=== PATIENT | female | born 1985 | race Caucasian/White ===

== ENCOUNTER 2020-01-26 15:21 | Inpatient (IN) | payer OTHER ==
[~2020-01-26] VITALS: Ht 160 cm; Wt 96.3 kg
[2020-01-26] MEDS ORDERED: ACETAMINOPHEN 500 MG TABLET PO ONE (17:15)
[2020-01-26 18:20] VITALS: BP 110/68
[2020-01-26 18:58] LABS: BASOPHILS % (AUTO) 1.2 % (0.0-2.0); EOSINOPHILS % (AUTO) 1.7 % (1.0-6.0); HEMATOCRIT 35.5 % (36-46); HEMOGLOBIN 11.2 g/dL (12.0-16.0); LYMPHOCYTES # (AUTO) 2.3 K/uL (1.0-4.8); LYMPHOCYTES % (AUTO) 37.1 % (22.0-44.0); MEAN CORPUSCULAR HEMOGLOBIN 22.6 pg (26.0-34.0); MEAN CORPUSCULAR HGB CONC 31.6 G/dL (31.0-37.0); MEAN CORPUSCULAR VOLUME 72 fL (80-100); MONOCYTES # (AUTO) 0.3 K/uL (0.1-1.0); MONOCYTES % (AUTO) 5.4 % (2.0-9.0); NEUTROPHILS # (AUTO) 3.5 K/uL (1.8-7.7); NEUTROPHILS % (AUTO) 54.6 % (40.0-70.0); PLATELET COUNT (AUTO) 292 K/uL (150-450); RED BLOOD CELL COUNT(AUTO) 4.95 MIL/uL (4.00-5.20); RED CELL DISTRIBUTION WIDTH 18.5 % (11.5-14.5)
[2020-01-26 19:19] LABS: ANION GAP 6 mmol/L (8-16); CALCIUM, TOTAL 9.2 mg/dL (8.8-10.5); CARBON DIOXIDE 27 mmol/L (22-29); CHLORIDE 103 mmol/L (98-107); CREATININE 0.91 mg/dL (0.60-1.30); GLOMERULAR FILTR. RATE CALC > 60 mL/min (>60); GLUCOSE,RANDOM 87 mg/dL (70-110); POTASSIUM 3.8 mmol/L (3.5-5.1); SODIUM SERUM 136 mmol/L (136-145); UREA NITROGEN, BLOOD 13 mg/dL (7-18)
[2020-01-26 19:30] LABS: ALANINE AMINOTRANSFERASE 32 U/L (12-78); ALBUMIN 3.5 g/dL (3.4-5.0); ALKALINE PHOSPHATASE 89 U/L (46-116); ASPARTATE AMINOTRANSFERASE 20 U/L (15-37); BILIRUBIN,TOTAL 0.3 mg/dL (0.1-1.0); HCG,QUANTITATIVE < 1 mIU/mL (0-6); TOTAL PROTEIN, SERUM 7.6 g/dL (6.4-8.2)
[2020-01-26 20:50] VITALS: BP 131/73
[2020-01-26] MEDS ORDERED: ONDANSETRON HCL 4 MG/2 ML VIAL IVP PRN (21:00)
[2020-01-26] MEDS: ACETAMINOPHEN 325 MG TABLET PO PRN (22:42)
[2020-01-26] MEDS ORDERED: QUEtiapine FUMARATE 25 MG TABLET PO ONE (23:00)
[2020-01-27 00:01] VITALS: BP 114/85
[2020-01-27 08:08] VITALS: BP 109/63
[2020-01-27] MEDS: ENOXAPARIN SODIUM 40 MG/0.4 ML PF SYRINGE SQ SCH (09:57)
[2020-01-27] MEDS: SERTRALINE HCL 50 MG TABLET PO SCH ×2 (12:56→21:11)
[2020-01-27 13:31] LABS: APPEARANCE,URINE CLOUDY (CLEAR); BILIRUBIN,URINE NEGATIVE (NEGATIVE); GLUCOSE, URINE (UA) NEGATIVE (NEGATIVE); KETONES,URINE NEGATIVE (NEGATIVE); LEUKOCYTE ESTERASE ,URINE LARGE (NEGATIVE); NITRATE,URINE NEGATIVE (NEGATIVE); OCCULT BLOOD,URINE NEGATIVE (NEGATIVE); PROTEIN,URINE NEGATIVE (NEGATIVE); UROBILINOGEN,URINE 0.2 mg/dL (<=1.0)
[2020-01-27 13:35] LABS: AMPHET/METH SCREEN,URINE NEGATIVE (NEGATIVE); BARBITURATE SCREEN, URINE NEGATIVE (NEGATIVE); BENZODIAZEPINES SCREEN,URINE NEGATIVE (NEGATIVE); CANNABINOID SCREEN,URINE NEGATIVE (NEGATIVE); COCAINE SCREEN,URINE NEGATIVE (NEGATIVE); METHADONE SCREEN, URINE NEGATIVE (NEGATIVE); OPIATE SCREEN,URINE NEGATIVE (NEGATIVE)
[2020-01-27 13:36] LABS: RBC,URINE 0-2 /HPF (0-2)
[2020-01-27 13:36] LABS: PHENCYCLIDINE SCREEN,URINE NEGATIVE (NEGATIVE)
[2020-01-27 13:37] LABS: BACTERIA,URINE Moderate /HPF (None Seen); SQUAMOUS EPITHELIAL CELL,UR Many /LPF (None Seen)
[2020-01-27 15:53] VITALS: BP 118/66
[2020-01-27] MEDS: ACETAMINOPHEN 325 MG TABLET PO PRN (16:01)
[2020-01-27] MEDS ORDERED: SODIUM CHLORIDE 0.9% 500 ML IV ONE (17:30)
[2020-01-27] MEDS: CefTRIAXone 1 GM/DEXTROSE 50 ML IV SCH (17:48)
[2020-01-27 20:12] VITALS: BP 98/60
[2020-01-28 00:13] VITALS: BP 105/48
[2020-01-28] MEDS: ACETAMINOPHEN 325 MG TABLET PO PRN ×2 (01:30→21:39)
[2020-01-28] MEDS: LORazepam 2 MG/ML VIAL IVP PRN (01:59)
[2020-01-28 05:23] VITALS: BP 113/61
[2020-01-28 06:43] LABS: BASOPHILS % (AUTO) 1.2 % (0.0-2.0); HEMATOCRIT 36.6 % (36-46); HEMOGLOBIN 11.7 g/dL (12.0-16.0); LYMPHOCYTES # (AUTO) 2.7 K/uL (1.0-4.8); MEAN CORPUSCULAR HEMOGLOBIN 22.9 pg (26.0-34.0); MEAN CORPUSCULAR VOLUME 71 fL (80-100); MONOCYTES # (AUTO) 0.5 K/uL (0.1-1.0); MONOCYTES % (AUTO) 7.6 % (2.0-9.0); NEUTROPHILS # (AUTO) 2.8 K/uL (1.8-7.7); NEUTROPHILS % (AUTO) 45.2 % (40.0-70.0); PLATELET COUNT (AUTO) 256 K/uL (150-450); RED BLOOD CELL COUNT(AUTO) 5.13 MIL/uL (4.00-5.20); RED CELL DISTRIBUTION WIDTH 18.4 % (11.5-14.5)
[2020-01-28 07:07] LABS: ANION GAP 4 mmol/L (8-16); CALCIUM, TOTAL 8.6 mg/dL (8.8-10.5); CARBON DIOXIDE 30 mmol/L (22-29); CHLORIDE 105 mmol/L (98-107); CREATININE 0.93 mg/dL (0.60-1.30); GLOMERULAR FILTR. RATE CALC > 60 mL/min (>60); GLUCOSE,RANDOM 90 mg/dL (70-110); POTASSIUM 4.1 mmol/L (3.5-5.1); SODIUM SERUM 139 mmol/L (136-145); UREA NITROGEN, BLOOD 18 mg/dL (7-18)
[2020-01-28 07:45] VITALS: BP 95/57
[2020-01-28] MEDS: SERTRALINE HCL 50 MG TABLET PO SCH ×2 (09:19→20:13)
[2020-01-28] MEDS: ENOXAPARIN SODIUM 40 MG/0.4 ML PF SYRINGE SQ SCH (09:19)
[2020-01-28] MEDS: RisperiDONE 1 MG TABLET PO SCH ×2 (13:52→20:13)
[2020-01-28] MEDS: CefTRIAXone 1 GM/DEXTROSE 50 ML IV SCH (17:01)
[2020-01-28 17:04] VITALS: BP 109/55
[2020-01-28 20:40] VITALS: BP 115/69
[2020-01-28] MEDS: MELATONIN 3 MG TABLET PO PRN ×2 (22:03→22:14)
[2020-01-29 04:45] VITALS: BP 107/62
[2020-01-29 07:30] VITALS: BP 105/45
[2020-01-29] MEDS: SERTRALINE HCL 50 MG TABLET PO SCH ×2 (08:01→20:30)
[2020-01-29] MEDS: RisperiDONE 1 MG TABLET PO SCH ×2 (08:01→20:29)
[2020-01-29] MEDS: ENOXAPARIN SODIUM 40 MG/0.4 ML PF SYRINGE SQ SCH (08:01)
[2020-01-29] MEDS: ACETAMINOPHEN 325 MG TABLET PO PRN ×2 (08:01→20:28)
[2020-01-29] MEDS: CefTRIAXone 1 GM/DEXTROSE 50 ML IV SCH (16:45)
[2020-01-29 19:00] VITALS: BP 95/67
[2020-01-29] MEDS: MELATONIN 3 MG TABLET PO PRN (20:28)
[2020-01-30] MEDS: ACETAMINOPHEN 325 MG TABLET PO PRN ×2 (00:06→20:14)
[2020-01-30] MEDS: LORazepam 2 MG/ML VIAL IVP PRN ×2 (00:07→22:23)
[2020-01-30] MEDS: SERTRALINE HCL 50 MG TABLET PO SCH (08:09)
[2020-01-30] MEDS: RisperiDONE 1 MG TABLET PO SCH (08:09)
[2020-01-30] MEDS: ENOXAPARIN SODIUM 40 MG/0.4 ML PF SYRINGE SQ SCH (08:09)
[2020-01-30 08:11] VITALS: BP 109/61
[2020-01-30] MEDS ORDERED: RisperiDONE 1 MG TABLET PO ONE (11:30)
[2020-01-30] MEDS ORDERED: SODIUM CHLORIDE 0.9% 100 ML ONE (16:42)
[2020-01-30] MEDS: CefTRIAXone 1 GM/DEXTROSE 50 ML IV SCH (16:43)
[2020-01-30 19:36] VITALS: BP 103/58
[2020-01-30] MEDS: RisperiDONE 2 MG TABLET PO SCH (20:12)
[2020-01-30] MEDS: MELATONIN 3 MG TABLET PO PRN (20:12)
[2020-01-31 05:29] VITALS: BP 112/59
[2020-01-31] MEDS: SERTRALINE HCL 100 MG TABLET PO SCH (08:02)
[2020-01-31] MEDS: RisperiDONE 2 MG TABLET PO SCH ×2 (08:02→19:43)
[2020-01-31] MEDS: ENOXAPARIN SODIUM 40 MG/0.4 ML PF SYRINGE SQ SCH (08:02)
[2020-01-31 09:00] VITALS: BP 102/53
[2020-01-31] MEDS: CefTRIAXone 1 GM/DEXTROSE 50 ML IV SCH (16:22)
[2020-01-31] MEDS: ACETAMINOPHEN 325 MG TABLET PO PRN (16:23)
[2020-01-31 19:19] VITALS: BP 97/60
[2020-01-31] MEDS: LORazepam 2 MG/ML VIAL IVP PRN (19:43)
[2020-01-31] MEDS: MELATONIN 3 MG TABLET PO PRN (21:40)
[2020-02-01 08:07] VITALS: BP 98/56
[2020-02-01] MEDS: ENOXAPARIN SODIUM 40 MG/0.4 ML PF SYRINGE SQ SCH (08:30)
[2020-02-01] MEDS: RisperiDONE 2 MG TABLET PO SCH ×2 (08:30→19:49)
[2020-02-01] MEDS: SERTRALINE HCL 100 MG TABLET PO SCH (08:30)
[2020-02-01] MEDS: ACETAMINOPHEN 325 MG TABLET PO PRN ×3 (08:40→19:55)
[2020-02-01 16:08] VITALS: BP 97/50
[2020-02-01] MEDS: CefTRIAXone 1 GM/DEXTROSE 50 ML IV SCH (17:15)
[2020-02-01] MEDS: MELATONIN 3 MG TABLET PO PRN (19:55)
[2020-02-01 20:00] VITALS: BP 106/60
[2020-02-02] MEDS: TraMADol HCL 50 MG TABLET PO PRN ×3 (01:20→22:10)
[2020-02-02 05:37] VITALS: BP 115/68
[2020-02-02] MEDS: SERTRALINE HCL 100 MG TABLET PO SCH (07:58)
[2020-02-02] MEDS: RisperiDONE 2 MG TABLET PO SCH ×2 (07:58→21:41)
[2020-02-02] MEDS: ENOXAPARIN SODIUM 40 MG/0.4 ML PF SYRINGE SQ SCH (07:58)
[2020-02-02 08:09] VITALS: BP 109/74
[2020-02-02] MEDS: CefTRIAXone 1 GM/DEXTROSE 50 ML IV SCH (17:05)
[2020-02-02 20:57] VITALS: BP 104/52
[2020-02-02] MEDS: MELATONIN 3 MG TABLET PO PRN (21:41)
[2020-02-03] MEDS: LORazepam 2 MG/ML VIAL IVP PRN (04:12)
[2020-02-03 08:05] VITALS: BP 100/54
[2020-02-03] MEDS: SERTRALINE HCL 100 MG TABLET PO SCH (08:20)
[2020-02-03] MEDS: ENOXAPARIN SODIUM 40 MG/0.4 ML PF SYRINGE SQ SCH (08:20)
[2020-02-03] MEDS: RisperiDONE 2 MG TABLET PO SCH (08:20)
[2020-02-03] MEDS: TraMADol HCL 50 MG TABLET PO PRN ×2 (12:52→20:01)
[2020-02-03 14:28] VITALS: BP 95/68
[2020-02-03 16:40] VITALS: BP 108/63
[2020-02-03] MEDS: CefTRIAXone 1 GM/DEXTROSE 50 ML IV SCH (16:57)
[2020-02-03] MEDS: MELATONIN 3 MG TABLET PO PRN (19:57)
[2020-02-03] MEDS: RisperiDONE 3 MG TABLET PO SCH (19:57)
[2020-02-03 20:16] VITALS: BP 102/60
[2020-02-04 09:00] VITALS: BP 103/65
[2020-02-04] MEDS: TraMADol HCL 50 MG TABLET PO PRN ×2 (09:30→17:45)
[2020-02-04] MEDS: RisperiDONE 3 MG TABLET PO SCH ×2 (09:55→20:01)
[2020-02-04] MEDS: SERTRALINE HCL 100 MG TABLET PO SCH (09:55)
[2020-02-04] MEDS: ENOXAPARIN SODIUM 40 MG/0.4 ML PF SYRINGE SQ SCH (09:55)
[2020-02-04] MEDS: ACETAMINOPHEN 325 MG TABLET PO PRN (15:01)
[2020-02-04] MEDS ORDERED: SODIUM CHLORIDE 0.9% 500 ML IV ONE (17:36)
[2020-02-04] MEDS: CefTRIAXone 1 GM/DEXTROSE 50 ML IV SCH (17:45)
[2020-02-04 19:52] VITALS: BP 103/55
[2020-02-04] MEDS: MELATONIN 3 MG TABLET PO PRN (20:02)
[2020-02-05 00:01] VITALS: BP 113/6
[2020-02-05] MEDS: LORazepam 2 MG/ML VIAL IVP PRN ×2 (00:16→21:16)
[2020-02-05 04:52] VITALS: BP 101/67
[2020-02-05] MEDS: SERTRALINE HCL 100 MG TABLET PO SCH (08:07)
[2020-02-05] MEDS: ENOXAPARIN SODIUM 40 MG/0.4 ML PF SYRINGE SQ SCH (08:07)
[2020-02-05] MEDS: RisperiDONE 3 MG TABLET PO SCH ×2 (08:07→19:53)
[2020-02-05 08:20] VITALS: BP 100/52
[2020-02-05] MEDS: CefTRIAXone 1 GM/DEXTROSE 50 ML IV SCH (16:31)
[2020-02-05 19:45] VITALS: BP 119/65
[2020-02-05] MEDS: MELATONIN 3 MG TABLET PO PRN (19:53)
[2020-02-05] MEDS: TraMADol HCL 50 MG TABLET PO PRN (22:21)
[2020-02-06 04:05] VITALS: BP 105/67
[2020-02-06] MEDS: RisperiDONE 3 MG TABLET PO SCH ×2 (08:14→19:55)
[2020-02-06] MEDS: ENOXAPARIN SODIUM 40 MG/0.4 ML PF SYRINGE SQ SCH (08:14)
[2020-02-06] MEDS: SERTRALINE HCL 100 MG TABLET PO SCH (08:15)
[2020-02-06 08:29] VITALS: BP 144/52
[2020-02-06] MEDS ORDERED: RISP3TAB14 PO (17:28)
[2020-02-06] MEDS ORDERED: SERT50TA12 PO (17:29)
[2020-02-06] MEDS ORDERED: MELA3TAB82 PO (17:30)
[2020-02-06 19:23] VITALS: BP 115/56
[2020-02-06] MEDS: MELATONIN 3 MG TABLET PO PRN (19:55)
[2020-02-06] MEDS: TraMADol HCL 50 MG TABLET PO PRN (20:33)
== END 2020-02-06 21:00 | DRG 885 ==
LOC: EMS 15:23 → 6N 17:30 → 6S 01-28 11:40
PROVIDERS: ADMIT Internal Medicine; ATTEND Internal Medicine
DX: F25.1 Schizoaffective disorder, depressive type (principal); R45.851 Suicidal ideations; F17.200 Nicotine dependence, unspecified, uncomplicated; Z20.828 Contact with and (suspected) exposure to other viral communicable diseases; F11.10 Opioid abuse, uncomplicated; F22 Delusional disorders; F41.9 Anxiety disorder, unspecified; Z79.899 Other long term (current) drug therapy
CPT/HCPCS: 74019; 76881; 83735; 87086; 87426; G0480; J0696; J1650; J2060; J7040; J7050